=== PATIENT | female | born 1985 | race Caucasian/White ===

== ENCOUNTER 2018-10-23 21:01 | Emergency (ER) | payer OTHER ==
[~2018-10-23] VITALS: Ht 165.1 cm; Wt 66.2 kg
[~2018-10-23 21:01] MED LIST: [UNRECOGNIZED DRUG - OTHER]
[2018-10-23 21:04] VITALS: Ht 165.1 cm; Wt 66.2 kg
[2018-10-23] MEDS ORDERED: SOD CHLORIDE 0.9% 1,000 ML IV STA (23:24)
[2018-10-24] MEDS ORDERED: ONDANSETRON 4 MG INJ IV STA (01:07)
[2018-10-24] MEDS ORDERED: morphine 4 MG/ML VIAL IV STA ×2 (01:07→03:06)
[2018-10-24] MEDS ORDERED: ACET1TAB40 PO (02:41)
[2018-10-24] MEDS ORDERED: METHYLERGONOVINE 0.2 MG INJ IM ONE (03:00)
[2018-10-24] MEDS ORDERED: TRAM50TA2 PO (03:11)
[2018-10-24] MEDS ORDERED: NORG1TAB34 PO (03:11)
--- NOTE | 2018-10-24 03:20 | ERD ---
ER Documentation Chief Complaint Chief Complaint Pt reports syncope at work today, pt reports 15 pads per hour clots HPI Is a 33 female says she almost passed out today at work. She says is been having heavy vaginal bleeding over the past 2 weeks. She said an average of 5-6 pads per day, however today she states she had 10-15 pads. She denies any fevers or chills. She denies any nausea or vomiting. Denies any palpitations. She does complain of some pelvic cramping. She has a known fibroid uterus. ROS All systems reviewed and are negative except as per history of present illness. Medications Home Meds Active Scripts Norgestimate-Ethinyl Estradiol (Ortho Tri-Cyclen 28 Tablet) 1 Each Tablet, 1 EACH PO DAILY, #1 TAB Prov:HOLLIE BLANCO 10/24/18 Tramadol HCl (Tramadol HCl) 50 Mg Tablet, 50 MG PO Q4 PRN for PAIN, #20 TAB Prov:HOLLIE BLANCO 10/24/18 Reported Medications Acetaminophen with Codeine (Acetaminophen-Cod #3 Tablet) 1 Each Tablet, 1 TAB PO Q6H, #7 TAB 10/24/18 Discontinued Reported Medications [Antiobiotics] No Conflict Check 11/24/12 [None] No Conflict Check 11/24/12 [None] No Conflict Check 11/08/09 Allergies Allergies: Coded Allergies: Penicillins (Verified Allergy, Unknown, 10/23/18) iodine (Verified Allergy, Unknown, 10/23/18) PMhx/Soc Medical and Surgical Hx: pt denies Medical Hx, pt denies Surgical Hx History of Surgery: Yes ([facility]) Anesthesia Reaction: No Hx Neurological Disorder: No Hx Respiratory Disorders: No Hx Cardiac Disorders: No Hx Psychiatric Problems: No Hx Miscellaneous Medical Probl: No Hx Alcohol Use: No Hx Substance Use: No Hx Tobacco Use: No Smoking Status: Never smoker Physical Exam Vitals Vital Signs Date Temp Pulse Resp B/P (MAP) Pulse Ox O2 O2 Flow FiO2 Time Delivery Rate 10/24/18 79 15 127/61 100 Room Air 01:20 (83) 10/23/18 80 16 120/73 100 Room Air 23:45 (89) 10/23/18 97.6 94 16 126/78 100 21:04 (94) Physical Exam Const: No acute distress Head: Atraumatic Eyes: Normal Conjunctiva ENT: Normal External Ears, Nose and Mouth. Neck: Full range of motion. No meningismus. Resp: Clear to auscultation bilaterally Cardio: Regular rate and rhythm, no murmurs Abd: Soft, non tender, non distended. Normal bowel sounds Skin: No petechiae or rashes Back: No midline or flank tenderness Ext: No cyanosis, or edema Neur: Awake and alert Psych: Normal Mood and Affect Result Diagram: 10/23/18 9519 Results 24 hrs Laboratory Tests Test 10/23/18 20:40 10/23/18 23:33 10/23/18 23:44 Urine Color YELLOW Urine Clarity CLOUDY Urine pH 5.0 Urine Specific [place] 1.028 Urine Ketones TRACE mg/dL Urine Nitrite NEGATIVE mg/dL Urine Bilirubin NEGATIVE mg/dL Urine Urobilinogen 1+ mg/dL Urine Leukocyte Esterase TRACE Moni/ul Urine Microscopic RBC > 182 /HPF Urine Microscopic WBC 2 /HPF Urine Mucus MODERATE /HPF Urine Hemoglobin 3+ mg/dL Urine Glucose NEGATIVE mg/dL Urine Total Protein 2+ mg/dl White Blood Count 11.0 10^3/ul Red Blood Count 4.86 10^6/ul Hemoglobin 9.4 g/dl Hematocrit 33.4 % Mean Corpuscular Volume 68.7 fl Mean Corpuscular Hemoglobin 19.3 pg Mean Corpuscular 28.1 g/dl Hemoglobin Concent Red Cell Distribution Width 17.6 % Platelet Count 495 10^3/UL Mean Platelet Volume 9.2 fl Immature Granulocytes % 0.300 % Neutrophils % 63.3 % Lymphocytes % 25.7 % Monocytes % 6.8 % Eosinophils % 3.3 % Basophils % 0.6 % Nucleated Red Blood Cells % 0.0 /100WBC Immature Granulocytes # 0.030 10^3/ul Neutrophils # 7.0 10^3/ul Lymphocytes # 2.8 10^3/ul Monocytes # 0.8 10^3/ul Eosinophils # 0.4 10^3/ul Basophils # 0.1 10^3/ul Nucleated Red Blood Cells # 0.0 10^3/ul Prothrombin Time 12.5 Sec Prothrombin Time Ratio 1.0 INR International 0.92 Normalized Ratio Activated Partial Thromboplast 22.4 Sec Time Beta HCG, Quantitative < 2.4 mIU/ml POC Beta HCG, Qualitative NEGATIVE Current Medications Medications Dose Sig/Karlos Start Time Status Last (Trade) Ordered Route PRN Stop Time Admin Dose Reason Admin Sodium 1,000 ml @ Q1H STAT 10/23/18 DC 10/23/18 Chloride 1,000 mls/hr IV 23:24 23:47 10/24/18 00:23 Morphine 4 mg ONCE STAT 10/24/18 DC 10/24/18 Sulfate IV 01:07 01:13 (morphine) 10/24/18 01:08 Ondansetron 4 mg ONCE STAT 10/24/18 DC 10/24/18 HCl (Zofran IV 01:07 01:13 Inj) 10/24/18 01:08 0.2 mg ONCE ONCE 10/24/18 DC 10/24/18 Methylergonov IM 03:00 02:52 ine Maleate 10/24/18 03:01 (Methergine) Morphine 4 mg ONCE STAT 10/24/18 DC 10/24/18 Sulfate IV 03:06 03:13 (morphine) 10/24/18 03:07 Procedures/MDM Medical decision making: This very pleasant patient comes in for dysfunctional uterine bleeding. Ultrasound does show fibroid uterus and thickened endometrium . H&H at this point is stable. Vital signs remained stable. Patient has been hydrated. Given dose of Methergine here in ER. Will be discharged with OCP. She is to follow-up with [facility] tomorrow. Return for any worsening bleeding. Departure Diagnosis: Primary Impression: Vaginal bleeding Condition: Stable Patient Instructions: Dysfunctional Uterine Bleeding HOLLIE BLANCO Oct 24, 2018 03:20
[2018-10-24] MEDS ORDERED: methergine PO (03:23)
[2018-10-24] MEDS ORDERED: meth (03:23)
[2018-10-24 03:31] VITALS: BP 116/67; PULSE 74; RESP 13
== END 2018-10-24 03:32 | disposition home or self-care (01) ==
LOC: E/R 21:01
DX: N93.9 Abnormal uterine and vaginal bleeding, unspecified (principal); R10.2 Pelvic and perineal pain
CPT/HCPCS: 36415; 76856; 81001; 81025; 84702; 85025; 85610; 85730; 86850; 86900; 86901; 96372; 96374; 96375; 96376; J2210; J2270; J2405; J7030; Z7502